=== PATIENT | female | born 2000 | race Caucasian/White ===

== ENCOUNTER 2021-03-21 14:08 | Observation (INO) ==
[2021-03-21 16:09] LABS: Hematocrit (blood only) 38.8 % (37-47); Hemoglobin 13.3 g/dL (12.0-16.0); Mean Corpuscular Hemoglobin 29.4 pg (25-34); Mean Corpuscular Hgb Conc 34.3 g/dL (32-36); Mean Corpuscular Volume 85.7 fL (80-100); Mean Platelet Volume 9.2 fL (7.4-10.4); Platelet Count 175 K/uL (130-400); RDW Coefficient of Variation 13.5 % (11.5-14.5); RDW Standard Deviation 42.6 fL (36.4-46.3); Red Blood Count 4.53 M/uL (4.2-5.4); White Blood Count 13.18 K/uL (4.8-10.8)
[2021-03-21 16:34] LABS: Alanine Aminotransferase 70 U/L (12-78); Albumin Level 3.4 gm/dl (3.4-5.0); Aspartate Aminotransferase 48 U/L (15-37); BUN Creatinine Ratio 16.5 (10-20); Blood Urea Nitrogen 14 mg/dl (7-18); Calcium 9.5 mg/dl (8.5-10.1); Carbon Dioxide 24 mmol/L (21-32); Chloride 98 mmol/L (98-107); Creatinine Clr Calc Pharmacy 111.3 ml/min; Est GFR (African American) 115.1 ml/min; Est GFR (Non-African American) 99.3 ml/min; Glucose 130 mg/dl (70-99); Potassium 3.9 mmol/L (3.5-5.1); Sodium 132 mmol/L (136-145)
[2021-03-21 16:37] LABS: Albumin Globulin Ratio 0.6 (0.9-2); Alkaline Phosphatase 121 U/L (45-117); Bilirubin,Total 0.5 mg/dl (0.2-1); Globulin 5.5 gm/dl (2.5-4.0); Total Protein 8.9 gm/dl (6.4-8.2)
[2021-03-21 16:39] LABS: ALC (manual) 2.52 K/uL (1.2-3.4); Lymphocytes # (manual) 1.37 K/uL (1.2-3.4); Lymphocytes % (manual) 10.4 %; Monocytes # (manual) 0.57 K/uL (0.11-0.59); Monocytes % (manual) 4.3 %; Neutrophils % (manual) 76.6 %; Polychromasia 1+; Reactive Lymphocytes # (manual) 1.15 K/uL; Reactive Lymphocytes % (manual) 8.7 %
--- NOTE | 2021-03-21 17:59 | Emergency Department Note ---
Impression & Plan Tonsillopharyngitis, Sepsis, Hyponatremia ED Provider Note NAME: NIRANJAN PRATT AGE: 20 SEX: F : 2000 ARRIVES VIA: Walk-In INFORMANT: Patient, ED PROVIDER(S): Derek Hassan MD Chief Complaint: Sore throat, concern for possible tonsillar abscess HPI: Patient does present with sore throat. The patient has had sore throat for approximate 4 to 5 days. The patient has been taking [id number] medi cations but without great improvement in symptoms. The patient had a negative rapid strep test test today. The patient is vaccinated for Covid. The patient has been on steroids but this has not improved her symptoms. Patient has had fevers but without chills. The patient has not been able to eat today. The patient is noticed a voice change today. Patient denies any nausea vomiting. Patient denies any known sick contacts or recent travel. The patient states that her symptoms of gotten progressively worse have not improved. No remitting factors. Patient does occasionally use alcohol but not recently. The patient denies any tobacco or drug use. ROS: See HPI for pertinent positives and negatives. A total of 10 systems were reviewed and otherwise negative. Past medical history: See below Surgical history: See below Social history: See below Physical Exam: GENERAL: Mildly ill in appearance, NAD, non-toxic. EYE EXAM: Normal conjunctiva. PERRL, no anisocoria and EOM's grossly intact w/o pain. [OROPHARYNX: Moist mucus membranes. Grossly normal dentition. Significant tonsillar swelling, unable to visualize the posterior pharynx, uvula is not visualized, exudate bilateral tonsils noted. NECK: Supple, no nuchal rigidity, no adenopathy, non-tender. No signs of meningismus. FROM of the neck with good chin to chest and neck extension. No stridor. LUNGS: Clear to auscultation. Normal chest wall mechanics. HEART: Tachycardic and regular, no MRG. ABDOMEN: Abdomen soft, non-tender, normo-active bowel sounds, no masses, no rebound or guarding. BACK: No CVA TTP. SKIN: No rashes and no bruising. UPPER EXTREMITIES: Upper extremities are grossly normal. LOWER EXTREMITIES: Grossly normal, no edema. NEURO EXAM: A&O x3, cranial nerves II-XII grossly intact, normal speech, moves all 4 extremities on command w/o issue. Differential diagnoses: Viral syndrome, tonsillitis, streptococcal pharyngitis, mononucleosis, peritonsillar abscess, retropharyngeal abscess, otitis, pne umonia, influenza, as well as other pathologies. Course: Patient was seen and evaluated the bedside. Full history physical exam was performed. Imaging Studies: See Below Cardiac monitoring: An order was placed for continuous cardiac monitoring. The monitor shows a rate of 102 with tachycardic and regular rhythm. MDM: Patient was seen due to concern for voice changes and significant posterior pharyngeal swelling. Blood work is obtained along with a CT soft tissue neck. Patient does have a white count of 13 with a normal H&H and platelet count. Kidney function is unremarkable. Very mild hyponatremia. Troponin is not detectable. The patient did have a negative Covid. Patient had tested negative for strep recently and did have a recent positive mono test. CT did show significant tonsillitis. No abscess. I did briefly speak with the on-call ENT who kindly reviewed the scan and stated that given that there is no abscess no need for any intervention at this time. The patient does have voice changes the patient is not stridulous handling secretions it and does not complain of shortness of breath. I did speak with the on-call hospitalist Dr. Villanueva the patient was admitted to the medicine service. Past Med/Surg History Medical History (Updated 03/21/21 @ 23:53 by Derek Hassan MD) Hx MRSA infection No pertinent past medical history Surgical History No pertinent past surgical history Social History (Updated 03/21/21 @ 18:56 by Derek Hassan MD) Smoking Status: Never smoker Hx Alcohol Use: Yes Alcohol type: beer and hard liquor Hx Substance Use: No Preferred Language: Tanzanian Communication Ability: Effective Beliefs That Will Affect Care: None Current Living Situation: Other Current Living Situation Comment: dorm room with roommate current occupation: [employer] student Other Information That Helps Us Care for You: No Feels Safe at Home: Yes Safety Concerns: Feels Safe At This Time Assistive Devices: None Immunizations: Up-to-date on COVID-19 vaccination Allergies Allergies Allergy/AdvReac Type Severity Reaction Status Date / Time No Known Allergies Allergy Unverified 03/21/21 20:30 Home Meds Home Medications Medication Instructions Recorded Confirmed spironolactone 50 mg tablet 100 mg PO DAILY 03/21/21 03/21/21 Results & Data (ED) Vital Signs Vital Signs - 24 hr 03/21/21 14:27 03/21/21 17:28 03/21/21 17:30 Temperature 36.8 C 37.9 C H Temperature Source Skin Oral Pulse Rate 105 H 106 H Pulse Rate [Right Finger] 106 H Pulse Rate from SpO2 Sensor Pulse Rhythm Regular Pulse Strength Normal Respiratory Rate 20 16 18 Respiratory Effort / Characteristics Non-Labored Spontaneous Respiratory Depth Normal Respiratory Pattern Regular Blood Pressure 111/75 Blood Pressure [Right Arm] 125/75 Blood Pressure Mean 87 Blood Pressure Mean [Right Arm] 91 Pulse Oximetry 97 98 98 Oxygen Delivery Method Room Air Room Air Sepsis Recent Fever Within 48 Hours No Sepsis New/Unexplained Change in Mental Status N/A Sepsis Action Taken by Nursing No Action Required 03/21/21 18:00 03/21/21 18:30 03/21/21 19:00 Temperature Temperature Source Pulse Rate 105 H 110 H 103 H Pulse Rate [Right Finger] Pulse Rate from SpO2 Sensor 105 H Pulse Rhythm Pulse Strength Respiratory Rate 12 20 20 Respiratory Effort / Characteristics Respiratory Depth Respiratory Pattern Blood Pressure 112/64 Blood Pressure [Right Arm] Blood Pressure Mean 80 Blood Pressure Mean [Right Arm] Pulse Oximetry 98 95 99 Oxygen Delivery Method Sepsis Recent Fever Within 48 Hours Sepsis New/Unexplained Change in Mental Status Sepsis Action Taken by Nursing 03/21/21 19:30 03/21/21 19:42 03/21/21 20:00 Temperature Temperature Source Pulse Rate 94 H 94 H Pulse Rate [Right Finger] 92 H Pulse Rate from SpO2 Sensor 95 H 91 H Pulse Rhythm Pulse Strength Respiratory Rate 15 14 Respiratory Effort / Characteristics Respiratory Depth Respiratory Pattern Blood Pressure 112/63 Blood Pressure [Right Arm] 112/62 Blood Pressure Mean 79 Blood Pressure Mean [Right Arm] 78 Pulse Oximetry 98 97 99 Oxygen Delivery Method Room Air Sepsis Recent Fever Within 48 Hours Sepsis New/Unexplained Change in Mental Status Sepsis Action Taken by Nursing 03/21/21 20:30 03/21/21 21:00 Temperature Temperature Source Pulse Rate 91 H 87 Pulse Rate [Right Finger] Pulse Rate from SpO2 Sensor 96 H 88 Pulse Rhythm Pulse Strength Respiratory Rate 16 16 Respiratory Effort / Characteristics Respiratory Depth Respiratory Pattern Blood Pressure 108/71 Blood Pressure [Right Arm] Blood Pressure Mean 83 Blood Pressure Mean [Right Arm] Pulse Oximetry 97 96 Oxygen Delivery Method Sepsis Recent Fever Within 48 Hours Sepsis New/Unexplained Change in Mental Status Sepsis Action Taken by [facility] Medications Current Medication List: was personally reviewed by me Laboratory Data Attestation: I reviewed the patient's lab results. Result diagrams: 03/21/21 16:01 03/21/21 16:01 Lab Results 03/21/21 03/21/21 03/21/21 Range/Units 16:01 16:01 16:01 WBC 13.18 H (4.8-10.8) K/uL RBC 4.53 (4.2-5.4) M/uL Hgb 13.3 (12.0-16.0) g/dL Hct 38.8 (37-47) % MCV 85.7 (80-100) fL MCH 29.4 (25-34) pg MCHC 34.3 (32-36) g/dL RDW Std Deviation 42.6 (36.4-46.3) fL RDW Coeff of Gilma 13.5 (11.5-14.5) % Plt Count 175 (130-400) K/uL MPV 9.2 (7.4-10.4) fL Neutrophils % (Manual) 76.6 % Lymphocytes % (Manual) 10.4 % Reactive Lymphs % (Man) 8.7 % Monocytes % (Manual) 4.3 % Neutrophils # (Manual) 10.10 H (1.4-6.5) K/uL Total Absolute Neuts 10.10 H (1.4-6.5) K/uL Lymphocytes # (Manual) 1.37 (1.2-3.4) K/uL Reactive Lymphs # 1.15 K/uL Total Abs Lymphocytes 2.52 (1.2-3.4) K/uL Monocytes # (Manual) 0.57 (0.11-0.59) K/uL Polychromasia 1+ Sodium 132 L (136-145) mmol/L Potassium 3.9 (3.5-5.1) mmol/L Chloride 98 (98-107) mmol/L Carbon Dioxide 24 (21-32) mmol/L Anion Gap 9.0 (3-11) BUN 14 (7-18) mg/dl Creatinine 0.85 (0.6-1.2) mg/dl Est Cr Clr Drug Dosing 111.3 ml/min Est GFR ( Amer) 115.1 ml/min Est GFR (Non-Af Amer) 99.3 ml/min BUN/Creatinine Ratio 16.5 (10-20) Glucose 130 H (70-99) mg/dl Calcium 9.5 (8.5-10.1) mg/dl Total Bilirubin 0.5 (0.2-1) mg/dl AST 48 H (15-37) U/L ALT 70 (12-78) U/L Alkaline Phosphatase 121 H (45-117) U/L Troponin I < 0.015 Cancelled (0-0.045) ng/ml Total Protein 8.9 H (6.4-8.2) gm/dl Albumin 3.4 (3.4-5.0) gm/dl Globulin 5.5 H (2.5-4.0) gm/dl Albumin/Globulin Ratio 0.6 L (0.9-2) COVID-19 Eval Order SARS-CoV-2 (PCR) (Negative) Monoscreen (Negative) 03/21/21 03/21/21 03/21/21 Range/Units 18:40 18:46 18:46 WBC (4.8-10.8) K/uL RBC (4.2-5.4) M/uL Hgb (12.0-16.0) g/dL Hct (37-47) % MCV (80-100) fL MCH (25-34) pg MCHC (32-36) g/dL RDW Std Deviation (36.4-46.3) fL RDW Coeff of Gilma (11.5-14.5) % Plt Count (130-400) K/uL MPV (7.4-10.4) fL Neutrophils % (Manual) % Lymphocytes % (Manual) % Reactive Lymphs % (Man) % Monocytes % (Manual) % Neutrophils # (Manual) (1.4-6.5) K/uL Total Absolute Neuts (1.4-6.5) K/uL Lymphocytes # (Manual) (1.2-3.4) K/uL Reactive Lymphs # K/uL Total Abs Lymphocytes (1.2-3.4) K/uL Monocytes # (Manual) (0.11-0.59) K/uL Polychromasia Sodium (136-145) mmol/L Potassium (3.5-5.1) mmol/L Chloride (98-107) mmol/L Carbon Dioxide (21-32) mmol/L Anion Gap (3-11) BUN (7-18) mg/dl Creatinine (0.6-1.2) mg/dl Est Cr Clr Drug Dosing ml/min Est GFR ( Amer) ml/min Est GFR (Non-Af Amer) ml/min BUN/Creatinine Ratio (10-20) Glucose (70-99) mg/dl Calcium (8.5-10.1) mg/dl Total Bilirubin (0.2-1) mg/dl AST (15-37) U/L ALT (12-78) U/L Alkaline Phosphatase (45-117) U/L Troponin I (0-0.045) ng/ml Total Protein (6.4-8.2) gm/dl Albumin (3.4-5.0) gm/dl Globulin (2.5-4.0) gm/dl Albumin/Globulin Ratio (0.9-2) COVID-19 Eval Order Covid19 at [facility] SARS-CoV-2 (PCR) NEGATIVE (Negative) Monoscreen Positive A (Negative) Administered Medications Lactated Ringer's (Lr) 1,000 mls @ 100 mls/hr IV .Q10H PETRA Stop: 03/22/21 18:38 Last Admin: 03/21/21 22:49 Dose: 100 mls/hr Documented by: [id number] Discontinued Medications Dexamethasone (Dexamethasone Sod Inj 4 Mg/Ml Vial) 10 mg IV NOW STA Stop: 03/21/21 18:28 Last Admin: 03/21/21 18:34 Dose: 10 mg Documented by: [id number] Ampicillin Sodium/Sulbactam Sodium 3,000 mg/ Sodium Chloride 108 mls @ 200 mls/hr IV NOW STA Stop: 03/21/21 18:59 Last Infusion: 03/21/21 19:42 Dose: 0 mls/hr Documented by: [id number] Admin: 03/21/21 18:41 Dose: 200 mls/hr Documented by: [id number] Sodium Chloride (Nss 1000ml) 1,000 mls @ 999 mls/hr IV .Q1H1M ONE Stop: 03/21/21 19:27 Last Infusion: 03/21/21 19:53 Dose: 0 mls/hr Documented by: [id number] Admin: 03/21/21 18:35 Dose: 999 mls/hr Documented by: [id number] Sodium Chloride (Nss 1000ml) 1,000 mls @ 999 mls/hr IV .Q1H1M ONE Stop: 03/21/21 20:24 Last Infusion: 03/21/21 20:57 Dose: 0 mls/hr Documented by: [id number] Admin: 03/21/21 19:41 Dose: 999 mls/hr Documented by: [id number] Acetaminophen (Ofirmev) 1,000 mg in 100 mls @ 400 mls/hr IV NOW STA Stop: 03/21/21 19:38 Last Infusion: 03/21/21 20:41 Dose: 0 mls/hr Documented by: [id number] Admin: 03/21/21 19:39 Dose: 400 mls/hr Documented by: [id number] Ioversol (Optiray 320 125ml) 95 ml IV ONCE ONE Stop: 03/21/21 19:10 Last Admin: 03/21/21 19:11 Dose: 95 ml Documented by: [id number] Ketorolac Tromethamine (Ketorolac Tromethamine 15 Mg/Ml Vial) 10 mg IV NOW ONE Stop: 03/21/21 18:28 Last Admin: 03/21/21 18:35 Dose: 10 mg Documented by: [id number] Imaging Data Radiologist's Impression: Soft Tissue Neck CT 03/21/21 18:27 CT SCAN OF THE NECK WITH IV CONTRAST CLINICAL HISTORY: Enlarged tonsils. Voice changes. COMPARISON STUDY: No priors. TECHNIQUE: Following the IV administration of 95 cc of Optiray 320, CT scan of the soft tissues of the neck was performed from the skull base to the upper chest. Images are reviewed in the axial, sagittal, and coronal planes. IV contrast was administered without complication. A dose lowering technique was utilized adhering to the principles of ALARA. CT DOSE: 245.62 mGy.cm FINDINGS: Pharynx: The palatine and lingual tonsils are markedly enlarged and edematous with mucosal hyperemia. No organized fluid collection is seen to suggest abscess. This significantly narrows the adjacent airway. There is no evidence of mass lesion. The vocal cords are symmetric. There is minimal infiltration of the parapharyngeal fat. The prevertebral/retropharyngeal soft tissues are within normal limits. The Epiglottis is normal. Lymphadenopathy: There is bulky bilateral cervical lymphadenopathy. The largest cervical chain node on the right is seen on image #166 and measures 3.1 x 2.1 cm, and the largest on the left is seen on image #161 measuring 2.9 x 2.1 cm. There are also mildly enlarged submandibular lymph nodes. Thyroid: Normal in size and attenuation. Salivary glands: There are mildly enlarged intraparotid lymph nodes. The parotid and submandibular glands are otherwise within normal limits. Brain parenchyma: The visualized brain parenchyma at the skull base is normal in appearance. Vascular structures: The carotid arteries and jugular veins are widely patent. Skeletal structures: Imaged portions of the calvarium at the skull base are within normal limits. The cervical spine appears intact. Orbits: The bony orbits are intact. Orbital contents are normal as imaged. Sinuses and mastoids: There is subtotal opacification of the right maxillary antrum. Mild mucosal thickening is seen in the left maxillary antrum, as well as the frontal and ethmoid sinuses. The mastoid air cells are well pneumatized. Lung apices: Visualized apical lung parenchyma is clear. An Accessory azygous fissure is incidentally noted at the right apex. IMPRESSION: 1. Findings are consistent with a severe pharyngitis/tonsillitis, with associated bulky cervical lymphadenopathy. The appearance favors an infectious process such as mononucleosis. Clinical correlation will be essential and clinical follow-up to resolution is recommended. 2. The enlarged tonsils significantly narrow the adjacent airway. 3. No organized fluid collection is seen to suggest abscess. 4. Right maxillary sinus disease as above. ACT 112: Negative or not required by law. Electronically signed by: Catracho Chandler M.D. 03/21/2021 7:21 PM Discharge Plan Visit Data Chief Complaint: Throat Pain Stated Complaint: ABCESS - REF BY MED [facility] ED Provider: Derek Hassan Discharge Problem: Tonsillopharyngitis, Sepsis, Hyponatremia Patient Disposition: Admitted As Inpatient Discharge Instructions Interventions: ED Discharge Assessment Last Done: 03/21/21 22:42
[2021-03-21] MEDS ORDERED: SODIUM CHLORIDE 0.9% 1000ML 1,000 ML IV ONE ×2 (18:27→19:24)
[2021-03-21] MEDS ORDERED: DEXAMETHASONE SOD INJ 4 MG/ML VIAL IV STA (18:27)
[2021-03-21] MEDS ORDERED: KETOROLAC TROMETHAMINE 15 MG/ML VIAL IV ONE (18:27)
[2021-03-21] MEDS ORDERED: AMPICILLIN/SULBACTAM SOD 3,000 MG in 0.9 % SODIUM CHLORIDE 100 ML IV STA (18:27)
[2021-03-21] MEDS ORDERED: OPTIRAY 320 125ml IV ONE (19:09)
--- NOTE | 2021-03-21 19:22 | CT Scan Report ---
CT SCAN OF THE NECK WITH IV CONTRAST CLINICAL HISTORY: Enlarged tonsils. Voice changes. COMPARISON STUDY: No priors. TECHNIQUE: Following the IV administration of 95 cc of Optiray 320, CT scan of the soft tissues of e neck was performed from the skull base to the upper chest. Images are reviewed in the axial, sagitt al, and coronal planes. IV contrast was administered without complication. A dose lowering techniqu e was utilized adhering to the principles of ALARA. CT DOSE: 245.62 mGy.cm FINDINGS: Pharynx: The palatine and lingual tonsils are markedly enlarged and edematous with mucosal hyperemia. No organized fluid collection is seen to suggest abscess. This significantly narrows the adjacent ai rway. There is no evidence of mass lesion. The vocal cords are symmetric. There is minimal infiltrati on of the parapharyngeal fat. The prevertebral/retropharyngeal soft tissues are within normal limits. The Epiglottis is normal. Lymphadenopathy: There is bulky bilateral cervical lymphadenopathy. The largest cervical chain node o n the right is seen on image #166 and measures 3.1 x 2.1 cm, and the largest on the left is seen on i mage #161 measuring 2.9 x 2.1 cm. There are also mildly enlarged submandibular lymph nodes. Thyroid: Normal in size and attenuation. Salivary glands: There are mildly enlarged intraparotid lymph nodes. The parotid and submandibular gl ands are otherwise within normal limits. Brain parenchyma: The visualized brain parenchyma at the skull base is normal in appearance. Vascular structures: The carotid arteries and jugular veins are widely patent. Skeletal structures: Imaged portions of the calvarium at the skull base are within normal limits. The cervical spine appears intact. Orbits: The bony orbits are intact. Orbital contents are normal as imaged. Sinuses and mastoids: There is subtotal opacification of the right maxillary antrum. Mild mucosal thi ckening is seen in the left maxillary antrum, as well as the frontal and ethmoid sinuses. The mastoid air cells are well pneumatized. Lung apices: Visualized apical lung parenchyma is clear. An Accessory azygous fissure is incidentally noted at the right apex. IMPRESSION: 1. Findings are consistent with a severe pharyngitis/tonsillitis, with associated bulky cervical lymp hadenopathy. The appearance favors an infectious process such as mononucleosis. Clinical correlation will be essential and clinical follow-up to resolution is recommended. 2. The enlarged tonsils significantly narrow the adjacent airway. 3. No organized fluid collection is seen to suggest abscess. 4. Right maxillary sinus disease as above. ACT 112: Negative or not required by law. Electronically signed by: Catracho Chandler M.D. 03/21/2021 7:21 PM
[2021-03-21] MEDS ORDERED: ACETAMINOPHEN 1,000 MG/100 ML VIAL IV STA (19:24)
--- NOTE | 2021-03-21 19:47 | History & Physical Report ---
Date of Service March 21, 2021 Assessment & Plan (1) Tonsillopharyngitis: Plan: 20 y/o F w/ PMHx of MRSA skin infection and no other PMHx who presents w/ 5 days of worsening tonsillopharyngitis 2/2 infectious mononucleosis w/ kissing tonsils, requiring corticosteroids. No airway obstruction at this time and she is managing secretions / not drooling. - Per CT neck, not suggestive of tonsillar abscess. - s/p 1 dose Unasyn IV in the ED. Discontinue further doses of abx as most likely viral source and less likely superimposed bacterial infection and because of rash that may develop in some patients. Blood cultures ordered. - Dexamethasone 4mg q8h - consulted ENT. ED provider spoke to ENT concrete puddler and obtained prelim recommendations regarding corticosteroids. - supportive care and monitor clinically overnight - monitor via telemetry (2) Sepsis: Plan: - tachycardia and febrile, most likely viral source (mono) - mild leukocytosis 13.18 - check blood culture, ecg, and trop. follow CBC - deferred cxr. yellow sputum/mild cough likely from pharyngitis/pooling of secretions. (3) Hyponatremia: Plan: - maintenance NSS - follow AM labs (4) Elevated liver enzymes: Plan: - mildly elevated AST, alk phos - likely 2/2 viral illness (mono) - follow CMP in AM Plan: Diet: NPO ppx: SCDs code: full dispo: med/surg tele History of Present Illness Chief Complaint: tonsillar swelling [facility] 20 y/o female w/ no significant PMHx who presents w/ severe tonsillitis 2/2 mono, x 4-5 days, worsening. She has been on 2 days of PO steroids. Muffled voice since today x24 hours and intermittent fevers (all 5 days, rigors, sweats. 102.9F highest few days ago, waxing and waning). She is able to handle secretions and states she is able to mouth breathe. She has significant nasal congestion and has difficulty sleeping at night because of needing to keep mouth open. R ear muffled. R nostril congested. R side of mouth hurts to swallow. Hasn't eaten much past 2 days. Dorm mate w/ cough, but no other known sick contact. Throat pain 9->7/10 s/p pain medications in ED. Patient was seen at urgent care 3 days ago and had positive monospot. She has taken 40mg PO prednisone x 2 days. She went back to urgent care today and had a positive rapid strep and was sent to [facility] for the worsened severity of the tonsillar swelling w/ concern for obstruction. Patient is covid immunized. ED course: ED provider spoke w/ concrete puddler ENT. Reviewed imaging; no emergent procedure indicated. Patient was given a dose of IV Decadron 10 and Unasyn. Hx MRSA infection of arm during childhood. No med allergies. No tobacco/illicit drugs. Allergies Allergy/AdvReac Type Severity Reaction Status Date / Time No Known Allergies Allergy Unverified 03/21/21 20:30 Home Medications Medication Instructions Recorded Confirmed Type spironolactone 50 mg tablet 100 mg PO DAILY 03/21/21 03/21/21 History Past Med/Surg History Medical History (Updated 03/22/21 @ 14:13 by Jyoti Orellana PA-C) Hx MRSA infection No pertinent past medical history Surgical History No pertinent past surgical history Social History (Updated 03/21/21 @ 18:56 by Derek Hassan MD) Smoking Status: Never smoker Hx Alcohol Use: Yes Alcohol type: beer and hard liquor Hx Substance Use: No Preferred Language: Yi Communication Ability: Effective Beliefs That Will Affect Care: None Current Living Situation: Other Current Living Situation Comment: dorm room with roommate current occupation: [employer] student Other Information That Helps Us Care for You: No Feels Safe at Home: Yes Safety Concerns: Feels Safe At This Time Assistive Devices: None Review of Systems Review of Systems: All systems reviewed & are unremarkable except as noted in HPI & below Constitutional: See HPI Eyes: Denies blurry vision. Mild photophobia. ENT: Denies sore throat, sinus pain. 2 days of bilat ear aches. Mild tinnitus. A lot of yellow nasal drainage. Cardiovascular: Denies chest pain, palpitations Respiratory: Denies shortness of breath. Difficulty breathing through nose. Mainly sore throat. Mild cough (mostly yellow phlegm) Gastrointestinal: Denies abdominal pain, constipation, diarrhea, bloody stool. V x2. No nausea Genitourinary: Denies urinary symptoms including dysuria Musculoskeletal: + mild back pain. +myalgia. Neurological: Denies headache, numbness, tingling, focal weakness. Mild imbalance. Physical Exam Physical Exam: General: Grossly A&O. NAD. Cooperative. HEENT: Atraumatic, normocephalic. EOMI. PERRL. No pain w/ full neck ROM. Anterior cervical lymph node chain swollen bilaterally and mildly TTP. Swollen and exudative tonsils essentially touching, 0.5 mm away; Unable to visualize uvula. Nares w/ white/clear mucousy drainage. Pulm: CTAB. -wheezes, -rales, -rhonchi. No respiratory distress. Cardiac: RRR, -mrg. Radial pulses intact and symmetrical. No LE edema. Abdominal: Nontender, nondistended, soft. Integ: warm and dry Msk: No midline spinal or paraspinal TTP of back. Results & Data Results & Data ([facility]) Vital Signs (Past 12 Hours) Vital Signs tachycardic at admission. 37.9C temp Temp Pulse Pulse Resp BP BP Pulse Ox 03/21/21 19:42 92 H 112/62 97 03/21/21 19:30 94 H 15 98 03/21/21 19:00 103 H 20 99 03/21/21 18:30 110 H 20 112/64 95 03/21/21 18:00 105 H 12 98 03/21/21 17:30 106 H 18 98 03/21/21 17:28 37.9 C H 106 H 16 125/75 98 03/21/21 14:27 36.8 C 105 H 20 111/75 97 Laboratory Results hyponatremic 132. AAST 48H. alk phos 121H. mono pos. wbc 13.18. monoscreen positive. 03/21/21 16:01 03/21/21 16:01 Diagnostic Findings Soft Tissue Neck CT 03/21/21 18:27 CT SCAN OF THE NECK WITH IV CONTRAST CLINICAL HISTORY: Enlarged tonsils. Voice changes. COMPARISON STUDY: No priors. TECHNIQUE: Following the IV administration of 95 cc of Optiray 320, CT scan of the soft tissues of the neck was performed from the skull base to the upper chest. Images are reviewed in the axial, sagittal, and coronal planes. IV contrast was administered without complication. A dose lowering technique was utilized adhering to the principles of ALARA. CT DOSE: 245.62 mGy.cm FINDINGS: Pharynx: The palatine and lingual tonsils are markedly enlarged and edematous with mucosal hyperemia. No organized fluid collection is seen to suggest abscess. This significantly narrows the adjacent airway. There is no evidence of mass lesion. The vocal cords are symmetric. There is minimal infiltration of the parapharyngeal fat. The prevertebral/retropharyngeal soft tissues are within normal limits. The Epiglottis is normal. Lymphadenopathy: There is bulky bilateral cervical lymphadenopathy. The largest cervical chain node on the right is seen on image #166 and measures 3.1 x 2.1 cm, and the largest on the left is seen on image #161 measuring 2.9 x 2.1 cm. There are also mildly enlarged submandibular lymph nodes. Thyroid: Normal in size and attenuation. Salivary glands: There are mildly enlarged intraparotid lymph nodes. The parotid and submandibular glands are otherwise within normal limits. Brain parenchyma: The visualized brain parenchyma at the skull base is normal in appearance. Vascular structures: The carotid arteries and jugular veins are widely patent. Skeletal structures: Imaged portions of the calvarium at the skull base are within normal limits. The cervical spine appears intact. Orbits: The bony orbits are intact. Orbital contents are normal as imaged. Sinuses and mastoids: There is subtotal opacification of the right maxillary antrum. Mild mucosal thickening is seen in the left maxillary antrum, as well as the frontal and ethmoid sinuses. The mastoid air cells are well pneumatized. Lung apices: Visualized apical lung parenchyma is clear. An Accessory azygous fissure is incidentally noted at the right apex. IMPRESSION: 1. Findings are consistent with a severe pharyngitis/tonsillitis, with associated bulky cervical lymphadenopathy. The appearance favors an infectious process such as mononucleosis. Clinical correlation will be essential and clinical follow-up to resolution is recommended. 2. The enlarged tonsils significantly narrow the adjacent airway. 3. No organized fluid collection is seen to suggest abscess. 4. Right maxillary sinus disease as above. ACT 112: Negative or not required by law. Electronically signed by: Catracho Chandler M.D. 03/21/2021 7:21 PM ECG Additional Comments: ecg ordered, pending Code Status & VTE Plan Code Status full VTE Prophylaxis Plan VTE Prophylaxis will be ordered: Yes Reason for no VTE drug order: Treatment not indicated Supervising Physician Co-Signing Physician Notes Attending addendum: I have physically seen this patient, have supervised the medical residents activities, and agree with the H&P unless as otherwise noted. Assessment and Plan: Tonsillopharyngitis/mononucleosis- Received dexamethasone 10 mg IV and Unasyn 3 g IV from the ED Continue dexamethasone 4 mg IV every 8 hours and Unasyn 3 g IV every [address] Friedman, ENT, who is already been contacted by the ED N.p.o. overnight IV fluids Hyponatremia- Sodium 133 upon admission, likely associated decreased oral intake IV fluids Repeat laboratories in a.m. Remaining orders and notations as noted Resident Activity Tracking Resident Involvement: Resident Care Provided Care Provided: Adult Hospital Medicine
[2021-03-21 21:36] LABS: Troponin I < 0.015 ng/ml (0-0.045)
[2021-03-21] MEDS ORDERED: ONDANSETRON INJ 2 MG/ML 2 ML VIAL IV PRN (22:39)
[2021-03-21] MEDS: LACTATED RINGER'S 1,000 ML IV SCH (22:49)
[2021-03-22] MEDS: dexAMETHasone 4 MG in SYRINGE 0 ML IV SCH ×2 (00:16→07:53)
[2021-03-22] MEDS ORDERED: FLUARIX QUADRIVALENT 0.5 ML SYR IM ONE (01:15)
[2021-03-22 07:07] LABS: Hematocrit (blood only) 35.2 % (37-47); Hemoglobin 11.8 g/dL (12.0-16.0); Mean Corpuscular Hemoglobin 28.9 pg (25-34); Mean Corpuscular Hgb Conc 33.5 g/dL (32-36); Mean Corpuscular Volume 86.1 fL (80-100); Mean Platelet Volume 9.6 fL (7.4-10.4); Platelet Count 196 K/uL (130-400); RDW Coefficient of Variation 13.6 % (11.5-14.5); RDW Standard Deviation 43.2 fL (36.4-46.3); Red Blood Count 4.09 M/uL (4.2-5.4); White Blood Count 11.52 K/uL (4.8-10.8)
[2021-03-22 07:46] LABS: Albumin Level 3.1 gm/dl (3.4-5.0); BUN Creatinine Ratio 16.1 (10-20); Calcium 8.7 mg/dl (8.5-10.1); Creatinine Clr Calc Pharmacy 116.7 ml/min; Est GFR (Non-African American) 105.3 ml/min; Potassium 3.8 mmol/L (3.5-5.1)
[2021-03-22 07:49] LABS: Albumin Globulin Ratio 0.6 (0.9-2); Bilirubin,Total 0.3 mg/dl (0.2-1); Globulin 4.8 gm/dl (2.5-4.0); Total Protein 7.9 gm/dl (6.4-8.2)
[2021-03-22 07:50] LABS: ALC (manual) 3.03 K/uL (1.2-3.4); ANC (manual) 7.88 K/uL (1.4-6.5); Lymphocytes # (manual) 0.81 K/uL (1.2-3.4); Metamyelocytes % (manual) 0.9 %; Monocytes # (manual) 0.51 K/uL (0.11-0.59); Monocytes % (manual) 4.4 %; Neutrophils # (manual) 7.88 K/uL (1.4-6.5); Neutrophils % (manual) 68.4 %; Reactive Lymphocytes # (manual) 2.22 K/uL; Reactive Lymphocytes % (manual) 19.3 %
[2021-03-22] MEDS: LACTATED RINGER'S 1,000 ML IV SCH (07:53)
[2021-03-22] MEDS ORDERED: dexAMETHasone 6 MG in SYRINGE 0 ML IV ONE (12:45)
[2021-03-22] MEDS ORDERED: ACETAMINOPHEN SUSP 1000 MG/31.2 ML UDP PO PRN (13:47)
--- NOTE | 2021-03-22 13:58 | Hospitalist Progress Note ---
Date of Service March 22, 2021 Assessment & Plan (1) Tonsillopharyngitis: Plan: -Secondary to mononucleosis -Given the severity of swelling/tonsillar edema, she was hospitalized to monitor airway and to ensure that she can tolerate oral intake -Patient is able to manage her oral secretions and she is not having any difficulty breathing. She is tolerating clear liquids but with great difficulty -She was given Decadron overnight. -I have reached out to ENT who recommends increasing the dose of Decadron but reports there is no need for emergent tonsillectomy at this point. Would continue to manage symptomatically and patient can follow ENT as an outpatient. Spoke directly to Dr. Carmine Friedman -As recommended, will increase Decadron to 10 mg IV every 8 hours with additional 6 mg x 1 dose now -Patient has no dietary restrictions but may eat whatever she can tolerate. Recommended clears/full liquids for now until tonsillar edema improved -We will add Magic mouthwash to help with symptomatic relief (2) Mononucleosis: Plan: -As outlined above -Patient had a mildly elevated AST with a normal total bilirubin and a normal ALT. This has normalized today. She does not have significant hepatosplenomegaly that I can appreciate. Continue with supportive care (3) Leukocytosis: Plan: -Secondary to #2 and resolved (4) Sinusitis: Plan: -I believe this is contributing to patient's discomfort -She does have sinusitis and mucopurulent drainage from the right nares along with tenderness to percussion -This may be viral; however, there is report that she had a positive strep test at urgent care prior to this hospitalization (I am attempting to obtain records) -At any rate, I believe she would benefit from antibiotic therapy -We will avoid Augmentin/Unasyn/Zosyn as patient may develop a rash in the setting of mononucleosis -Instead, will use Macrobid. I did call the pharmacy and unfortunate this does not come in a liquid but can be crushed and given with applesauce -Add Sudafed for symptomatic relief (patient should be able to tolerate as she is not tachycardic and has no underlying cardiac issues) Plan: -Plan of care has been discussed with Dr. Carmine Friedman (ENT) and will be D/W Dr. Vera. Further was as warranted. Admission and Anticipated Discharge Date Admission Date: March 21, 2021 Subjective Patient seen on daily rounds today She was hospitalized last night with severe tonsillitis due to mononucleosis. She has been symptomatic for approximately 6 days. Came in due to the severity of her sore throat and tonsillar enlargement. Was found to have mild leukocytosis of 13.18 with a positive mono screen. It was reported that she had a rapid strep done at urgent care prior to this hospitalization that was negative. I do not have these records. CT of the soft tissue neck shows severe tonsillitis with cervical lymphadenitis and narrowing of the adjacent airway. No peritonsillar abscess noted. ENT was consulted from the ED and recommended IV steroids and admission for monitoring. Patient also has significant mucopuru lent drainage from the right naris and sinusitis seen on imaging. She was given 1 dose of Unasyn in the ED but this was not continued due to the risk of rash in the setting of mononucleosis. Today, patient reports no significant change in the sore throat. She is controlling her oral secretions and able to tolerate oral intake but has significant and severe pain when swallowing. She is not having any trouble breathing. She denies fevers or chills. White blood cell count is downtrending and is currently 11.52. She denies any abdominal pain, nausea or vomiting. Her biggest complaint other than the sore throat is inability to breathe through the nose due to congestion. Review of Systems Review of Systems: All systems reviewed and are unremarkable except as noted in HPI and below Denies fevers, chills, headache, nasal congestion, sore throat, cough, chest pain, shortness of breath, palpitations, orthopnea, PND, abdominal pain, nausea, vomiting, diarrhea, constipation, dysuria, hematuria, frequency, back pain, joint pain or swelling, easy bruising or bleeding, skin lesions or rashes. Physical Exam Physical Exam: General: Resting comfortably in her hospital bed. She does not appear ill or toxic. Does have an impressive "hot potato voice"/muffled voice HEENT: Frontal and maxillary sinus tenderness to percussion with decreased transillumination. Mucopurulent drainage coming from right nares. Significant tonsillar enlargement (right much greater than left) with kissing tonsils. No exudates. Tonsillar striae exaggerated due to enlargement. No drooling Neck: Anterior cervical chain and posterior cervical chain lymphadenopathy noted Cardiac: RRR without M/G/R Lungs: CTA without W/R/R Abdomen: Normoactive X4. Soft and nontender in all quadrants. No hepatosplenomegaly appreciated Extremities: No peripheral clubbing cyanosis or edema Neuro: A&O X4 cranial nerves II through XII are grossly intact no focal neuro deficits Skin: No obvious skin lesions or rashes Psych: Appropriate affect pleasant and cooperative Results & Data Results & Data ([facility]) Vital Signs (Past 12 Hours) Vital Signs Temp Pulse Pulse Resp BP Pulse Ox 03/22/21 11:07 37.4 C 80 16 106/66 97 03/22/21 08:00 82 03/22/21 07:31 37.8 C H 81 16 102/64 97 Laboratory Results 03/22/21 06:37 03/22/21 06:37 Test Result Flag Reference Site Monotest | Positive | A | Negative | Diagnostic Findings CT of the soft tissues of the neck with contrast IMPRESSION: 1. Findings are consistent with a severe pharyngitis/tonsillitis, with associated bulky cervical lymphadenopathy. The appearance favors an infectious process such as mononucleosis. Clinical correlation will be essential and clinical follow-up to resolution is recommended. 2. The enlarged tonsils significantly narrow the adjacent airway. 3. No organized fluid collection is seen to suggest abscess. 4. Right maxillary sinus disease as above. PG Care Time/CCT Total # of Minutes Spent Total Time Spent with Patient: Total time spent is greater than 50% in coordination of care (as documented) at patient's floor/unit and/or counseling patient: [place] [address] Subseq Hosp Care Lvl 2 Patient Type Established History Detailed Exam Detailed Medical Decision Making Moderate Complexity Diagnoses Tonsillopharyngitis J02.9 Mononucleosis B27.90 Leukocytosis D72.829 Sinusitis J32.9
[2021-03-22] MEDS: PSEUDOEPHEDRINE HCL 30 MG TAB PO PRN ×2 (15:53→22:27)
[2021-03-22] MEDS: dexAMETHasone 10 MG in SYRINGE 0 ML IV SCH (20:41)
[2021-03-22] MEDS: CLARITHROMYCIN 500 MG TAB PO SCH (20:41)
--- NOTE | 2021-03-22 21:43 | Billing Data ---
Date of Service March 22, 2021 Coding Level of Care Code INT OBSERVATION CARE 70M LVL 3
[2021-03-23] MEDS: dexAMETHasone 10 MG in SYRINGE 0 ML IV SCH ×2 (04:09→11:23)
[2021-03-23 08:23] LABS: Hematocrit (blood only) 38.9 % (37-47); Hemoglobin 12.6 g/dL (12.0-16.0); Mean Corpuscular Hemoglobin 28.6 pg (25-34); Mean Corpuscular Hgb Conc 32.4 g/dL (32-36); Mean Corpuscular Volume 88.2 fL (80-100); Mean Platelet Volume 10.2 fL (7.4-10.4); Platelet Count 258 K/uL (130-400); RDW Coefficient of Variation 13.6 % (11.5-14.5); RDW Standard Deviation 44.2 fL (36.4-46.3); Red Blood Count 4.41 M/uL (4.2-5.4)
[2021-03-23] MEDS: CLARITHROMYCIN 500 MG TAB PO SCH (08:37)
[2021-03-23 08:42] LABS: Basophils # (auto) 0.04 K/uL (0-0.2); Basophils % (auto) 0.4 %; Immature Granulocytes # (auto) 0.04 K/uL (0.00-0.02); Immature Granulocytes % (auto) 0.4 %; Lymphocytes # (auto) 2.35 K/uL (1.2-3.4); Lymphocytes % (auto) 25.5 %; Monocytes # (auto) 0.55 K/uL (0.11-0.59); Neutrophils # (auto) 6.22 K/uL (1.4-6.5); Neutrophils % (auto) 67.7 %
[2021-03-23 08:50] LABS: Albumin Level 3.1 gm/dl (3.4-5.0); Calcium 9.3 mg/dl (8.5-10.1); Creatinine Clr Calc Pharmacy 147.8 ml/min; Est GFR (African American) 149.9 ml/min; Est GFR (Non-African American) 129.4 ml/min; Magnesium 2.9 mg/dl (1.8-2.4); Potassium 3.9 mmol/L (3.5-5.1)
[2021-03-23 08:53] LABS: Albumin Globulin Ratio 0.6 (0.9-2); Bilirubin,Total 0.3 mg/dl (0.2-1); Globulin 5.5 gm/dl (2.5-4.0); Total Protein 8.6 gm/dl (6.4-8.2)
[2021-03-23] MEDS: PSEUDOEPHEDRINE HCL 30 MG TAB PO PRN (11:22)
--- NOTE | 2021-03-23 16:27 | Discharge Summary ---
Date of Service March 23, 2021 Admission HPI Per Admitting Provider Viridiana Giles is a 20 y/o female w/ no significant PMHx who presents w/ severe tonsillitis 2/2 mono, x 4-5 days, worsening. She has been on 2 days of PO steroids. Muffled voice since today x24 hours and intermittent fevers (all 5 days, rigors, sweats. 102.9F highest few days ago, waxing and waning). She is able to handle secretions and states she is able to mouth breathe. She has significant nasal congestion and has difficulty sleeping at night because of needing to keep mouth open. R ear muffled. R nostril congested. R side of mouth hurts to swallow. Hasn't eaten much past 2 days. Dorm mate w/ cough, but no other known sick contact. Throat pain 9->7/10 s/p pain medications in ED. Patient was seen at urgent care 3 days ago and had positive monospot. She has taken 40mg PO prednisone x 2 days. She went back to urgent care today and had a positive rapid strep and was sent to [facility] for the worsened severity of the tonsillar swelling w/ concern for obstruction. Patient is covid immunized. ED course: ED provider spoke w/ [facility] E[facility]. Reviewed imaging; no emergent procedure indicated. Patient was given a dose of IV Decadron 10 and Unasyn. Hx MRSA infection of arm during childhood. No med allergies. No tobacco/illicit drugs. Principal Diagnosis 1. Tonsillopharyngitis 2. Mononucleosis 3. Acute sinusitis 4. Leukocytosisresolved Discharge Exam General: Resting comfortably in her hospital bed. She does not appear ill or toxic. Does have an impressive "hot potato voice"/muffled voice HEENT: Overall, significant improvement noticed today. No longer having mucopurulent drainage from the right naris. Still has mild but improved tenderness to palpation of the frontal and maxillary sinuses. Still with tonsillar enlargement but tonsils are no longer kissing. Tonsillar striae exaggerated. No exudate. Significant mucopurulent postnasal drip. Muffled/hot potato voice seems to be improving. Neck: Anterior cervical chain and posterior cervical chain lymphadenopathy noted Cardiac: RRR without M/G/R Lungs: CTA without W/R/R Abdomen: Normoactive X4. Soft and nontender in all quadrants. No hepatosplenomegaly appreciated Extremities: No peripheral clubbing cyanosis or edema Neuro: A&O X4 cranial nerves II through XII are grossly intact no focal neuro deficits Skin: No obvious skin lesions or rashes Psych: Appropriate affect pleasant and cooperative Discharge Data Allergies Allergy/AdvReac Type Severity Reaction Status Date / Time No Known Allergies Allergy Unverified 03/21/21 20:30 Consultations 03/21/21 19:48 ED Decision to Admit Stat 03/22/21 14:03 Consult Health Information Management Routine Ordered Studies 03/21/21 18:27 CT soft tissue neck w con Stat IMPRESSION: 1. Findings are consistent with a severe pharyngitis/tonsillitis, with associated bulky cervical lymphadenopathy. The appearance favors an infectious process such as mononucleosis. Clinical correlation will be essential and clinical follow-up to resolution is recommended. 2. The enlarged tonsils significantly narrow the adjacent airway. 3. No organized fluid collection is seen to suggest abscess. 4. Right maxillary sinus disease as above. Hospital Course (1) Tonsillopharyngitis: 20 y/o F w/ PMHx of MRSA skin infection and no other PMHx who presents w/ 5 days of worsening tonsillopharyngitis 2/2 infectious mononucleosis w/ kissing tonsils, requiring corticosteroids. No airway obstruction at this time and she is managing secretions / not drooling. -Secondary to mononucleosis -Given the severity of swelling/tonsillar edema, she was hospitalized to monitor airway and to ensure that she can tolerate oral intake -Patient is able to manage her oral secretions and she is not having any difficulty breathing. -She was initially given 1 dose of Unasyn in the ED but no subsequent dose discontinued due to risk of rash in the setting of mononucleosis -When seen the following morning, still having significant drainage from the right nares with clinical evidence to suggest sinusitis along with a hot potato voice and kissing tonsils. -A verbal consultation was performed with Dr. Carmine Friedman (ENT) who recommended increasing the dose of her steroid -In addition, she was placed on Biaxin for sinusitis (penicillin based antibiotics were avoided given her mononucleosis and risk for rash) -She was ordered Magic mouthwash and Sudafed for symptomatic relief -Seen the following day menses 03/23/2021) and symptoms are improving greatly. Tonsils are no longer kissing. No longer having mucopurulent drainage from the right nares. Able to tolerate full liquids. She is controlling her oral secretions and not having any issues breathing -At this point, she is medically and hemodynamically stable for discharge to home with continued Biaxin for sinusitis, tapering course of prednisone, and can continue Sudafed for symptomatic relief. In addition, I have prescribed Magic mouthwash for symptomatic relief. I am recommending the NeilMed sinus rinse (2) Sepsis: - sepsis syndrome - tachycardia and febrile, most likely viral source (mono) - mild leukocytosis 13.18 - With IV hydration, her tachycardia and leukocytosis have since resolved. She has been afebrile. May have continued fever spikes during mono illness (3) Hyponatremia: -131. Improved with IV hydration (4) Elevated liver enzymes: - mildly elevated AST, alk phos - likely 2/2 viral illness (mono) -Resolved with IV hydration. -Recommend caution with Tylenol and Tylenol related products Follow-up with ENT Total Time Total Time Spent Total Time Spent (In Minutes): 45 Discharge Plan Discharge Items Patient Disposition: Home - Self-Care Reason For Visit: TONSILLOPHARYNGITIS Discharge Diagnosis: 1. Mononucleosis with tonsillitis 2. Acute Sinusitis Activity: Resume your previous activity Non-emergency contact: Primary Care Provider and Specialist Call non-emergency contact if: you have any medication questions and your symptoms worsen Follow-up/Referrals: [facility] [Primary Care Provider] - Diet: Regular Diet Comment: as tolerated Addtl Attending Provider Instructions: - you were hospitalized with impressive tonsillar enlargement secondary to Acute Mononucleosis - In addition, you have an extensive Sinus infection - Supportive care (is recommended for the [place])--> Push fluids, Ibuprofen for pain/fever, rest - I have ordered a magic "mouthwash" for you to use as needed for sore throat - complete tapering course of prednisone to help with the swelling of the tonsils - complete full course of antibiotic for the Sinus Infection (Biaxin) - I recommend that you purchase a NeilMed sinus rinse (OTC) and use as directed - follow up with the ENT within 1-2 weeks - return to the ED for new or worsening symptoms Pending Studies at Discharge: No Stand-Alone Forms: My [facility] Medications and DC Order Prescriptions: New clarithromycin 500 mg Tablet 500 mg PO Q12 Qty: 20 RF: 0 Magic Mouthwash 300 mL mouthwash 15 ml mucous membrane Q6H PRN (Reason: sore throat) Qty: 300 RF: 0 prednisone 10 mg tablets,dose pack 10 mg PO DIRECTED Qty: 21 RF: 0 Continued spironolactone 50 mg Tablet 100 mg PO DAILY RF: 0 Discharge Orders: Discharge Order (Routine); Ordered 03/23/21 Ordered By: Jyoti Orellana Admission Data Admit Date/Time: 03/21/21 21:10 Attending Provider: Peter Vera Admit Provider: Arnoldo Brewster Primary Care Provider: [facility] Other Providers: Kwame Ortiz Other Interventions: Discharge Summary Assessment (RN) Last Done: 03/23/21 12:16 Supervising Physician Co-Signing Physician Notes Patient seen and examined on the day of discharge. I agree with the discharge summary by Jyoti MOREJON. I have reviewed the chart including labs, imaging and plans for discharge. patient feeling better after Decadron and antibiotics able to eat and drink a little easier, will follow up with ENT - Mononucleosis, pharyngitis: severe pain and swelling, better with high dose Decadron, follow up with ENT arranged swallowing pills and food, drinking well, no difficulty swallowing complete Prednisone and Clarithromycin Coding Level of Care Code Established Pt D/C DAY MANAGEMENT >30 MINS Patient Type Established Diagnoses Tonsillopharyngitis J02.9 Sepsis A41.9 Sepsis acute organ dysfunction status: unspecified Sepsis type: sepsis due to unspecified organism Hyponatremia E87.1 Elevated liver enzymes R74.8 Time Spent (min) 45
== END 2021-03-23 13:44 | disposition home or self-care (01) ==
LOC: EDBD → ED 14:08 → 2N 14:08 → SUATTDRO 21:10 → 2N 22:42